=== PATIENT | female | born 1970 | race Caucasian/White ===

== ENCOUNTER 2024-05-15 10:41 | Day surgery (SDC) | payer OTHER, SELFPAY ==
[2024-05-10 08:17] VITALS: BMI 35.5
[2024-05-15] VITALS (7 sets, daily range): BP systolic 107–119; BP diastolic 66–79; PULSE 61–87; RESP 14–20; TEMP 36.6–36.9; O2SAT 95–98; BMI 33.8
--- NOTE | 2024-05-15 | DI.RAD.S_ITS ---
PROCEDURE: XR LUMBAR SPINE 2-3V INDICATIONS: L3-4 L4-5 HEMILAMINECTOMY TECHNIQUE: 3 views of the lumbar spine were acquired. COMPARISON: None. FINDINGS: Intraoperative fluoro images demonstrating marking overlying L4-5. IMPRESSION: Intraoperative localization. Dictated by: Marine Martino M.D. on 05/15/2024 at 21:28 Approved by: Marine Martino M.D. on 05/15/2024 at 21:28
[2024-05-15] MEDS: LACTATED RINGERS 1,000 ML 42 ML IV (11:20)
[2024-05-15] MEDS: ACETAMINOPHEN 325 MG TABLET 975 MG PO (11:22)
--- NOTE | 2024-05-15 11:32 | PM.PREOP ---
Pre-operative Note Interval Note History & Physical reviewed/Exam performed by Physician: Yes Changes to H&P: No
--- NOTE | 2024-05-15 11:41 | SUR.OPER ---
Prone on spine table, head in foam head support, padded chest and pelvic supports, gel pad at knees, lower legs supported by pillows; nipples, genitalia and toes free of pressure, arms secured on foam padded arm boards at <90 degrees abduction. Tape over blanket at thigh secured to table.
[2024-05-15] MEDS: CEFAZOLIN 2 GM/100 ML PREMIX 100 ML IV (12:26)
[2024-05-15] MEDS: BUPIVACAINE 0.25% (PF) 30 ML, EPINEPHrine 0.15 MG INJ (12:46)
--- NOTE | 2024-05-15 14:13 | P.OP_ITS ---
Operative Date/Time/Diagnoses Date of procedure: 05/15/24 Time of procedure: 12:30 Pre-op diagnosis: 1. L3-4, L4-5 spinal stenosis with neurogenic claudication 2. Lumbar radiculopathy Post-op diagnosis: same Procedure & Clinicians Procedure: 1. L4-5 laminectomy with bilateral facetecomies 2. L3-4 left hemilaminectomy 3. Utilization of microsurgical technique and operating microscope Same procedure as scheduled: Yes Indications: Patient has been having chronic back pain and worsening lumbar radiculopathy and symptoms of neurogenic claudication. Patient was found to have L3-4 L4-5 spinal stenosis with lateral recess stenosis correlating with patient's symptoms. Patient failed multiple conservative management with worsening pain weakness and numbness in her lower extremity. Patient has been having difficulty performing activity of daily living. After discussing risks benefits of treatment options, patient elected proceed with surgery. Surgeon: Tramaine Delgadillo Marine Pipe Welder: Michaela Martino Click Yes if Unassisted: No Anesthesia Type: General Operative Notes Closure Type: primary Estimated Blood Loss (mL): 5 Blood products transfused: none Procedure in detail: Patient was seen in the preoperative area. Risks and benefits of the surgery was discussed with the patient. Informed consent was obtained from the patient and placed in the chart. Surgical site was marked. Patient was taken to the operative room. General anesthesia was administered. Prophylactic antibiotic was given to the patient less than 30 min before the incision was made. Patient was placed into a prone position on the Yoni table. Patient's back was then prepped and draped in the sterile fashion. Time-out was performed at this time. Using AP and lateral C-arm imaging the interval between L4-5 was identified and marked on patient's back. A 1 inch incision 1 in from midline was made on the left side. The fascia was incised in line with skin incision. Globus MARS retractors was placed inside the incision and docked onto the L4 lamina. Using microsurgical technique and operating microscope, a L4 laminectomy was performed using a Kerrison rongeur. Liagamentum flavum was resected at the site of the laminotomy. Either side of the dura was exposed. Bilateral partial facetcomies was performed to further decompress the lateral recess. Patient was found to have significant central and lateral recess stenosis bilaterally at L4-5 level which was fully decompressed after the laminectomy partial facetectomy was c ompleted. After the laminectomy was completed, the area medial lateral superior and inferior to the area of the laminectomy was inspected and explored using a micro curette. No other impinging structure was identified. The mars retractor was redirected over the L3-4 interval. Using microsurgical technique and operative microscope a hemilaminectomy was performed at L3-4 level. Kerrison rongeur a micro curette was used to free up the ligamentum flavum which was resected during the process of a hemilaminectomy for the further decompressing the epidural space and lateral recess. Patient has lateral recess was fully decompressed after the hemilaminectomy was completed. The wound was then irrigated with sterile normal saline. 40 mg Depo-Medrol was placed into the epidural space. The deep fascia was closed with 1-0 Vicryl. The subcutaneous tissue was closed with 2-0 Vicryl. The skin was closed with skin genaro. Patient tolerated the procedure well. There were no complications. Patient was transferred recovery room in stable condition. The Operation could not have been safely performed without compromising the technical result or length of the procedure, without the assistance of a skilled assembler surgical garment. The assembler surgical garment was medically necessary for proper positioning, retraction and manipulation of instruments, proper exposure, surgical preparation, and manipulation of tissue. Complications: none Post-operative Condition: stable Disposition: PACU Plan for aftercare: Discharge to home
[2024-05-15] MEDS: hydrOXYzine 50 MG/ML INJ 25 MG IM (14:35)
[2024-05-15] MEDS: OXYCODONE IR 5 MG TABLET PO ×2 (14:43→15:46)
[2024-05-15] MEDS: fentaNYL 100 MCG/2 ML INJ IV (14:43)
[2024-05-15] MEDS: ONDANSETRON 4 MG/2 ML INJ IV (14:43)
== END 2024-05-15 15:53 | disposition home or self-care (01) ==
PROVIDERS: PCP Family Medicine; Referring Provider Family Medicine; Visit Provider Orthopaedic Surgery Orthopaedic Surgery of the Spine
PROC: (CPT 63047; principal; 2024-05-15 12:45)
DX: M48.062 Spinal stenosis, lumbar region with neurogenic claudication (principal); M54.16 Radiculopathy, lumbar region
CPT/HCPCS: 63047; 63048; 72100; 76000; J0171; J0330; J0690; J1100; J1170; J2405; J2704; J2919; J3010; J3410

== ENCOUNTER 2024-07-10 06:07 | Day surgery (SDC) | payer BC, SELFPAY ==
[2024-07-04 09:53] VITALS: BMI 35.2
[2024-07-10] VITALS (11 sets, daily range): BP systolic 89–146; BP diastolic 48–77; PULSE 68–101; RESP 12–18; TEMP 36.5–37.1; O2SAT 92–96; BMI 35.2
--- NOTE | 2024-07-10 06:34 | DI.RAD.S_ITS ---
PROCEDURE: XR KNEE RT 1TO2V INDICATIONS: TKA TECHNIQUE: 2 view(s) of the knee acquired. COMPARISON: [facility] Ozzie Bojorquez, CR, XR KNEE 4+ VIEWS RIGHT, 07/05/2024, 11:05. FINDINGS: Bones: Patient is status post knee joint arthroplasty. Hardware components are in expected positions. Visualized bony structures are intact. Soft tissues: Overlying postoperative changes are noted. IMPRESSION: Expected post-operative appearance after right total knee arthroplasty. Dictated by: Heath Thomas M.D. on 07/11/2024 at 11:39 Approved by: Heath Thomas M.D. on 07/11/2024 at 11:39
[2024-07-10] MEDS: ACETAMINOPHEN 325 MG TABLET 975 MG PO (07:04)
[2024-07-10] MEDS: LACTATED RINGERS 1,000 ML 42 ML IV ×2 (07:06→09:10)
--- NOTE | 2024-07-10 07:11 | P.OP_ITS ---
Operative Date/Time/Diagnoses Date of procedure: 07/10/24 Time of procedure: 08:00 Pre-op diagnosis: Right knee arthritis, posttraumatic arthritis, sequela right tibial plateau fracture Post-op diagnosis: same Procedure & Clinicians Procedure: Right total knee replacement CPT code 32714 Robotic assisted surgery [id number] Computer navigation assisted surgery 62930 During the operation, the services of a orthopedic surgeon physician investigative assistant modifier 80 were medically indicated and necessary to provide the exposure of the operative site for the surgical procedure and to maintain the limb in a proper position to carry out the operation safely and efficiently--for this complex posttraumatic knee arthroplasty deformity correction and arthroplasty surgery. Without the assistance of Dr. Snyder, orthopedic surgeon being present as a 2nd orthopedic surgeon assist, this would extended the operative procedure and made the procedure technically more difficult to perform. Same procedure as scheduled: Yes Indications: The patient is a 53-year-old female that had a lateral tibial plateau fracture of her right knee several years ago she had an ORIF at an outside institution by another orthopedic surgeon and was noted to have postoperative collapse and deformity. She was told nothing could be done for her at that time. She has been relegated to crutches for the last 3 years. She presented to me with a significant valgus collapse of her tibial plateau fracture and valgus knee arthritis. She was treated with a staged hardware removal and now returns for planned staged total knee arthroplasty for her posttraumatic arthritis and deformity. The risks and benefits of the procedure have been discussed with the patient and given the opportunity to ask questions. The risks of surgery include but are not limited to infection, malunion, nonunion, persistence of pain, damage to nerves and blood vessels, posttraumatic arthritis, DVT, PE, cardiopulmonary complications and . The patient expressed a thorough understanding of the risks and benefits of surgery and has elected to proceed. Consent was signed in the office. Surgeon: Brandi Cardenas Beam Department Supervisor: Lynn Snyder Anesthesia Type: General, Peripheral nerve block and Local Operative Notes Findings: Valgus deformity right knee through lateral tibial plateau collapse. Fracture healed and end-stage knee arthritis Soft metaphyseal femur medial Closure Type: primary Specimen(s): none sent Prosthetic devices, grafts, tissues, transplants, or devices: Snyder and nephew journey II BCS Femur Oxinium size 3 Tibia size 3 right Stem 10 mm x 100 mm nikky crossover stem Patella 35 mm by 7.5 mm round nikky Estimated Blood Loss (mL): 100 Blood products transfused: none Tourniquet time (min): 120 Procedure in detail: Patient was seen in the preoperative area where the patient and site of surgery were identified in the operative knee was marked informed consent confirmed. This was the right knee. Patient received the appropriate preoperative antibiotics this was 2 g of Ancef. And other preoperative medications and was taken to the operating room placed on operating table in the supine position. Spinal anesthetic were administered. The operative extremity was then prepped and draped in the standard sterile fashion with a nonsterile tourniquet high on the thigh. Patient was placed on the green foam bolsters. A lateral post was placed at the level of the proximal thigh /trochanter area as a lateral post. Formal time-out procedure was performed confirming the patient's side and site of surgery and administration of appropriate preoperative antibiotics and implants were in the room accounted for. All were in agreement. Patient received a preoperative dose of tranexamic acid and then a 2nd dose at tourniquet release Patient was prepped and draped in the standard sterile fashion and the foot was placed into the leg rm. This was taken into high flexion and the incision was marked out over the anterior knee to the level of the medial tubercle tubercle. The Esmarch was then used for exsanguination and the tourniquet was inflated to 250 mmHg. Was made through the skin and subcutaneous tissue in high flexion this was then brought down into 30? of flexion for the medial parapatellar arthrotomy. --care was taken to be well medial to the previous anterolateral scar from the tibial plateau fixation. A marker pen was used to janell the arthrotomy site for later repair. Joint fluid was evacuated. The anterior osteophytes and soft tissues were removed. Very Minimal medial release was initially made along the medial proximal tibia with Bovie--due to the valgus deformity. The patella was 1st cut using the saw sized and prepped and then subluxed throughout the case and protected. The leg was then taken into extension and the patella was everted and the patella was cut to accommodate the patellar button. This was sized to a 35 mm button for a 7.5 mm thickness to recreate the original dimensions of the patella. Poly was removed and the protector replaced and the patella was subluxed and the knee was taken back up into flexion and attention was returned to the femur. Then the rotational landmarks of Whitesides line and the trans epicondylar axis were marked on the femur with electrocautery. ACL and PCL were released. Then the Cori robotic pins were placed into the femur and tibia and the trackers set up. Landmarks were established and the robotic planning was commenced. Plan was developed and improved and adjusted as necessary to create a balanced knee. Preoperative measured alignment with the robot was 7? of valgus there was some partial correction with stress. Postoperative plan the alignment was 3? of valgus. To degrees of external rotation was placed in the distal femur as well as 3? of valgus. In his balance between 1 and 2 mm with 10 mm poly. Specific care was taken with the robot for planning of minimal lateral tibial bone resection care to maintain joint line. Plan was satisfactory the bur was used to remove the distal femur. Attention was then turned to the tibia and the tibial resection was made in accordance with the robotic planning. This was checked with the extension block there is a small amount of lateral tibial plateau remnant bone at the edges that was removed. Alignment matched the robotic planning. Then attention was returned to the femur and the 5:1 cutting block was placed and the chamfer on the femur were cut. Was checked with the robotic guidance for adequate alignment and removal. The trials were placed. And the femoral notch was cut a standard fashion using Reamer then slap hammer. The knee was trialed and the checked. Knee was balanced in flexion extension. Range of motion 0-135 degrees was obtained. The rotation femoral trial was marked Bovie on the bone and checked with a long juan ramon. The tibia was then finished with a drill and flange cut--decision was made to use a crossover stem to bridge past the area of posttraumatic bone in the tibial plateau from a previous tibial plateau fracture so this was reamed with a 9 then a 10 then an 11 mm Reamer to 100 mm depth for a selected 10 mm x 100 mm stem and this was roomed just a few mm below the tibia trial to make for the implant. And then The trial implants were removed. Then in extension the posterior capsule was injected with a mixture of 40 mL of 0.25% Marcaine and 20 mL of Exparel care to avoid excessive injection posterior laterally. The remainder of this was saved for the capsule and subcutaneous tissue and placed during cement curing. The wound and bone was irrigated with pulsatile lavage. This was then dried with a sponge. The components were verified and opened and the cement was mixed. Cement was applied to the components and then to the bone then the tibia was cemented in place 1st followed by the femur then the patella. Excess cement was removed. With care looking around the back of the knee. Remainder of the injection was injected around the capsule. trial poly was placed back in the leg was placed into extension for the patellar cementing. After this was cured approximately 15 minutes later and the dilute Betadine solution was placed for at least 3 minutes in the wound this was then irrigated out and the final poly was placed. This was a 11 mm poly constrained poly case there was some medial laxity with the unconstrained implant. The constrained poly improve this nicely while maintaining full range of motion. The tourniquet was released hemostasis was achieved. Final 1g of tranexamic acid was given IV at the time of tourniquet release. The capsule was closed with 1. Ethibond suture. Followed by a running Quill stitch. Subcutaneous layer was closed with 3-0 Vicryl suture. Skin was closed with a running V lock suture Stratafix Monocryl type suture and Dermabond. An Aquacel dressing was placed . An Wally wrap was applied. Anesthetic was terminated the patient was woken from anesthesia and taken to recovery room in good condition. There no immediate complications from this procedure. The patient will be maintained on a standard total knee replacement protocol with weight-bearing as tolerated. Complications: none Post-operative Condition: stable Disposition: PACU Plan for aftercare: Weightbear as tolerated. Immediate knee range of motion postoperative total knee arthroplasty protocol. Dressing will stay in place until follow up. May shower but no soaking of incision. Aspirin 81 mg b.i.d. enteric-coated x6 weeks for DVT prophylaxis.
--- NOTE | 2024-07-10 07:11 | PM.PREOP ---
Pre-operative Note Interval Note History & Physical reviewed/Exam performed by Physician: Yes Changes to H&P: No
[2024-07-10] MEDS: TRANEXAMIC ACID 1,000 MG VIAL 1000 MG INJ ×2 (07:55→10:13)
[2024-07-10] MEDS: CEFAZOLIN 2 GM/100 ML PREMIX 100 ML IV (08:00)
--- NOTE | 2024-07-10 08:16 | SUR.OPER ---
Supine on padded OR bed. Pillow under head, arms secured on padded armboards <90 degree abduction. Safety belt across torso. Non-operative leg secured with tape over blanket over lower leg. Operative leg secured in DeMayo/Federico/Nathe positioner. Foam padded brace at thigh of operative leg.
[2024-07-10] MEDS: BUPIVACAINE LIPOSOME 266 MG/20 ML VIAL INJ (08:23)
[2024-07-10] MEDS: BUPIVACAINE 0.25% (PF) 60 ML, EPINEPHrine 0.3 MG INJ (08:24)
[2024-07-10] MEDS: fentaNYL 100 MCG/2 ML INJ IV ×2 (10:53→10:58)
[2024-07-10] MEDS: HYDROMORPHONE 1 MG INJ IV ×2 (10:57→12:23)
[2024-07-10] MEDS: OXYCODONE IR 5 MG TABLET PO ×2 (11:14→12:00)
--- NOTE | 2024-07-10 13:08 | SUR.PHASEII ---
5mg Oxycodone dose recieved from Terry Moreno NURSING UNIT MANAGER covering for Claire NURSING UNIT MANAGER for pain of 03/25. Total to be 10mg
--- NOTE | 2024-07-10 13:55 | PT.IIE ---
Current Diagnoses Unilateral primary osteoarthritis, right knee (07/10/24) Surgery Performed Operation Date: 07/10/24 07:45 Actual Procedures p Total Knee Arthroplasty - Robot(Right) - Brandi Cardenas MD Surgical History (Last Updated 07/04/24 @ 10:32 by Aniya Coates, RN) History of History of gastric bypass History of hysterectomy (2009) History of orthopedic surgery Hx of appendectomy Hx of cholecystectomy Hx of tonsillectomy Hx of tubal ligation Medical History (Last Updated 07/04/24 @ 10:12 by Aniya Coates, RN) Anemia Arthritis Cancer Duodenal ulcer Headache Psoriasis Physical Therapy Inpatient Evaluation/Re-Eval M1 PT/OT-IP Prior Functional Status Start: 07/10/24 16:59 Freq: NEEDED Status: Active Protocol: Document 07/10/24 13:55 AB (Rec: 07/10/24 17:14 AB [id number]) Medical Review Prior Functional Status Medical History Reviewed Yes Communication able to make needs known Mobility and Gait pt stated that she was independent with all mobilities and ambulation without AD indoors with occasional use of her forearm crutches; uses forearm crutches outdoors Social History Household Members spouse,children Living Arrangements House Number of Floors (Floors) One Floor Number of Stairs To Enter/Railing? 1 step without rails to enter Home Environment Standard Height Toilet,Walk in Shower Home Equipment Front Wheel Walker,Crutches, Shower Seat with Backrest,Hand Held Shower,Grab Bars Near Toilet,Grab Bars In Shower Additional Social History Comment pt has her spouse and son to assist her at home M2 PT-IP Current Condition Start: 07/10/24 16:59 Freq: NEEDED Status: Active Protocol: Document 07/10/24 13:55 AB (Rec: 07/10/24 17:14 AB [id number]) Physical Therapy Current Condition Current Condition Evaluation Date 07/10/24 Treatment Diagnosis s/p R TKA; difficulty in walking Onset Date 07/10/24 M3 PT-IP Subjective Start: 07/10/24 16:59 Freq: NEEDED Status: Active Protocol: Document 07/10/24 13:55 AB (Rec: 07/10/24 17:14 AB [id number]) Subjective Physical Therapy Visit Type Type Initial Evaluation Visit Start Time 13:55 Visit Stop Time 14:30 Number of BUFFING WHEEL FORMER MACHINE Visits 0 Physical Therapy Visit Comments Patient Comments agreeable to do PT Therapy Pain Assessment Pain When Pain Assessed At Rest Pain Present Pain Present Pain Reported Location Right Knee Intensity 5 Scale Used Numeric (0 - 10) Pain Management Techniques Distraction,Modification of Treatment,Re-positioning, Timing of Activity with Medications M4 PT-IP Mobility and Gait Start: 07/10/24 16:59 Freq: NEEDED Status: Active Protocol: Document 07/10/24 13:55 AB (Rec: 07/10/24 17:14 AB [id number]) PT-Bed Mobility Assessment Supine to Sit Supine to Sit Standby Assistance PT-Transfer Assessment Sit to and From Stand Sit to and from Stand Standby Assistance,Contact Guard Assistance,1 Person Assistance,Use of Upper Extremities Equipment Transfer Assistive Device Gait Belt,Front Wheeled Walker Orthotic/Prosthetic Devices or Brace: No Comments Mobility Comments pt supine in bed and agreed to do PT. son with pt. obtained PLOF and home set up from pt. post-op folder provided and reviewed contents . educated pt on HEP. BP: 99/ 53. pt completed supine to sit SBA. able to sit on EOB SBA. no c/o dizziness/ lightheadedness. completed sit to stand CGA and ambulated in room using FWW ~ 30 ft initially SBA but needing CGA towards the end of ambulation. pt c/o feelign tired and RLE getting tired. cued for steadiness and safety. pt sat back on EOB. educated pt and on on stair climbing. caregiver training conducted. educated son on how to use safety belt and how to assist pt. son was able to put safety belt on pt and assisted pt with sit stand and ambulation using FWW ~ 20 ft. pt completed up/down step stool using FWW for support CGA and cues. son was able to assist pt. pt ambulated back to EOB and rested seated. informed PACU nurse regarding pt's mobilty. pt and son without further concerns. Gait Assessment Gait Gait Assistance Required: Standby Assistance,Contact Guard Assist Distance (Feet) 30 Able to Maintain Weight Bearing Status Yes During Gait Assistive Devices Assistive Device Gait Belt,Front Wheeled Walker Orthotic/Prosthetic Devices or Brace: No Gait Deviations General Gait Pattern Antalgic,Decreased Stride Length,Decreased Feet Clearance Factors Limiting Gait Function Factors Limiting Gait Function Decreased Activity Tolerance, Decreased Sensation,Decreased Strength,Limited Range of Motion,Pain,Poor Balance,Poor Safety Awareness Stair Climbing Assessment Evaluation Level of Assist On Stairs Contact Guard Assistance Devices Stair Climbing Assistive Devices Front Wheel Walker Technique/Endurance Stair Climbing Direction Ascend and Descend Stair Climbing Technique Step to Step Number of Steps Climbed 1 Query Text: Stair Climbing Set # Repetitions (reps) 1 PT-Balance Assessment Sitting Balance and Reactions Static Sitting Balance Ability Normal Dynamic Sitting Balance Ability Good Standing Balance and Reactions Static Standing Balance Ability Fair Dynamic Standing Balance Ability Fair Device Used FWW M5 PT-IP Objective Assessments Start: 07/10/24 16:59 Freq: NEEDED Status: Active Protocol: Document 07/10/24 13:55 AB (Rec: 07/10/24 17:14 AB [id number]) Orientation Orientation/Cognition Level of Alertness Alert Orientation Name,Age,Birthday,Place, Situation Language Function Ability No Deficits Noted Safety Awareness Decreased Safety Awareness Memory Description No Deficits Noted Gross Range of Motion Lower Extremity ROM Assessment Right Impaired Impairments R knee flexion: ~ 70 deg R knee extension: ~ 20 deg less to 0 Strength Lower Extremity Strength Assessment Right Impaired Hip 4-/5 Knee 4-/5 Coordination Assessment Gross Coordination Gross Coordination WNL Sensation Assessment Sensation Sensation Description Numbness,Tingling Comments Sensation Comments pt stated that she has 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 Muscle Tone Muscle Tone WNL Yes M6 PT-IP Treatment Start: 07/10/24 16:59 Freq: NEEDED Status: Active Protocol: Document 07/10/24 13:55 AB (Rec: 07/10/24 17:14 AB [id number]) Physical Therapy Treatment Exercises Exercises Heel Slides Education Education Provided Precautions,Weight Bearing Status,Post-Op Packet,Safety M7 PT-IP Assessment and Plan Start: 07/10/24 16:59 Freq: NEEDED Status: Active Protocol: Document 07/10/24 13:55 AB (Rec: 07/10/24 17:14 AB [id number]) PT Summary Assessment and Plan Potential Rehabilitation Potential Good Status of Condition at Evaluation Stable Summary Impairments Pain,ROM,Strength,Balance, Coordination,Sensation,Tone, Cognition,Bed Mobility, Transfers,Gait,Activity Tolerance Assessment Summary pt is a 53 y/o F s/p R TKA POD 0. pt seen in the PACU. pt requiring SBA to CGA with mobility using FWW. pt plans to go home and will have her spouse and son to assist her. pt has outpt pt set up. pt may go home when medically stable. Goals Bed Mobility Goal Independent Transfer Goal Independent,Front Wheeled Walker Gait Goal Independent,Front Wheel Walker Gait Distance 200 Other Goals up/down 1 step using FWW mod I Days to Meet Goals 3 Frequency of Treatment Frequency Of Treatment Twice a Day Treatment Plan Physical Therapy Treatment Plan Bed Mobility Training,Transfer Training,Gait Training, Therapeutic Exercise,Balance Retraining,Post Op Education, Discharge Planning,Hot or Cold Pack,Neuromuscular Re-ed, Coordination Retraining,Manual Therapy Weight Bearing Status Weight Bearing Status Weight Bear as Tolerated Allowed Weight Bearing Amount (enter % RLE WBAT or #) (%) Recommendations To Nursing Amount of Assist Needed 1 Person Assist Discharge Recommendations PT Discharge Recommendations Home with Assistance, Outpatient PT Transportation Needs at Discharge Private Vehicle
[2024-07-10] MEDS: ACETAMINOPHEN 325 MG TABLET 650 MG PO (14:02)
== END 2024-07-10 14:32 | disposition home or self-care (01) ==
LOC: OR 06:09 → AC 06:10
PROVIDERS: PCP Family Medicine; Referring Provider Family Medicine; Visit Provider Orthopaedic Surgery Foot and Ankle Surgery
PROC: 0SRC0JZ Replacement of Right Knee Joint with Synthetic Substitute, Open Approach (ICD-10-PCS; CPT 27447; principal; 2024-07-10 07:45)
DX: M17.31 Unilateral post-traumatic osteoarthritis, right knee (principal); M21.061 Valgus deformity, not elsewhere classified, right knee; M25.761 Osteophyte, right knee
CPT/HCPCS: 27447; 20985; 73560; 97161; 97530; C1776; C9290; J0171; J0690; J1100; J1170; J2250; J2704; J3010